=== PATIENT | male | born 1970 | race Caucasian/White ===

== ENCOUNTER 2017-12-04 18:34 | Emergency (ER) | payer OTHER ==
[~2017-12-04] VITALS: Ht 182.9 cm; Wt 104.3 kg
[~2017-12-04 18:34] MED LIST: CITALOPRAM HBR20 MG PO; CLONIDINE HCL0.1 MG PO; DESYREL100 MG PO; DIVALPROEX SOD500 M1 PO; EFFEXOR XR150 MG PO; HYDROXYZINE PAM50 MG PO; QUETIAPINE FUM100 MG PO; QUETIAPINE FUM300 MG PO; QUETIAPINE FUMA50 MG PO; RISPERIDONE0.5 MG PO; TRAZODONE HCL100 MG PO; TRAZODONE HCL50 MG PO; TRILAFON4 MG PO; TRILAFON8 MG PO
[2017-12-04 19:29] LABS: HEMATOCRIT 50.6 % (38.0-50.0); HEMOGLOBIN 17.8 G/DL (12.5-16.6); MCH 31.3 PG (29.0-34.0); MCHC 35.2 G/DL (30.0-36.0); MCV 88.9 FL (86-99); PLATELET COUNT 238 K/uL (156-360); RBC DIS.WIDTH-CV 12.4 % (11.8-14.6); RBC DIS.WIDTH-SD 41.1 % (39-53); RED BLOOD COUNT 5.69 M/uL (4.00-5.50); WHITE BLOOD COUNT 13.3 K/uL (4.1-10.2)
[2017-12-04 19:45] LABS: ALBUMIN 4.6 g/dL (3.2-4.8); CHLORIDE 107 mEq/L (99-109); POTASSIUM 4.2 mEq/L (3.7-5.4); SODIUM 143 mEq/L (136-147)
[2017-12-04 19:47] LABS: GLUCOSE 117 mg/dL (70-99)
[2017-12-04 19:48] LABS: TOTAL PROTEIN 7.4 g/dL (6.4-8.3)
[2017-12-04 19:49] LABS: TOTAL BILIRUBIN 0.5 mg/dL (0.0-1.0)
[2017-12-04 19:50] LABS: SERUM ETHYL ALCOHOL < 10 mg/dL
[2017-12-04 19:51] LABS: ALKALINE PHOSPHATASE 50 IU/L (3-129); GFR ESTIMATE (CALCULATED) > 59 mL/min/ (58.99-99999)
[2017-12-04 19:52] LABS: UREA NITROGEN (BUN) 17 mg/dL (9-23)
[2017-12-04 19:53] LABS: AST (GOT) 35 IU/L (2-34)
[2017-12-04 19:54] LABS: ALT (GPT) 51 IU/L (3-49)
[2017-12-04 21:15] VITALS: BP 148/86
== END 2017-12-04 21:16 | disposition home or self-care (01) ==
LOC: EME 18:34
PROVIDERS: Emergency Medicine
DX: F16.10 Hallucinogen abuse, uncomplicated (principal); Z04.6 Encounter for general psychiatric examination, requested by authority; F31.9 Bipolar disorder, unspecified; F20.9 Schizophrenia, unspecified; F17.210 Nicotine dependence, cigarettes, uncomplicated
CPT/HCPCS: 80053; 81003; 85027; 99281; 99284; G0480